=== PATIENT | female | born 1995 | race Caucasian/White ===

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

== ENCOUNTER 2017-07-19 11:38 | Inpatient (IN) | payer MEDICAID ==
[~2017-07-19] VITALS: Ht 167.6 cm; Wt 61.4 kg
[~2017-07-19 11:38] MED LIST changes: +HYDROCODON-ACE1 EAC7 PO; +IBUPROFEN600 MG PO
[2017-07-19 13:36] LABS: MAGNESIUM - SERUM 1.8 mg/dL (1.8-2.4)
[2017-07-19 15:26] LABS: BASOPHILS 0.1 % (0-2); EOSINOPHILS 1.6 % (0-7); HEMATOCRIT 49.2 % (36.0-48.0); HEMOGLOBIN 16.5 g/dL (12-16); IMMATURE GRANULOCYTES 0.2 % (0-5); MCH 29.2 pg (26.0-34.0); MCHC 33.5 g/dL (31.0-37.0); MCV 87.1 fL (80.0-100.0); MEAN PLATELET VOLUME 11.3 fL (7.4-10.4); MONOCYTES 6.7 % (2-11); NEUTROPHILS 86.4 % (40-80); RBC 5.65 10x6/uL (4.00-5.40); RDW 13.7 % (11.5-14.5); WBC 14.6 10x3/uL (4.8-10.8)
[2017-07-19 15:29] LABS: PLATELET COUNT 187 10x3/uL (130-400)
[2017-07-19 15:42] LABS: ALBUMIN 3.8 g/dL (3.4-5.0); ALKALINE PHOSPHATASE 94 U/L (46-116); ALT (SGPT) 13 U/L (10-68); BILIRUBIN - TOTAL 0.77 mg/dL (0.2-1.3); CALC OSMOLALITY 268 mosm/kg (275-300); CALCIUM 8.6 mg/dL (8.5-10.1); CARBON DIOXIDE 17.8 mmol/L (21.0-32.0); CHLORIDE - SERUM 100 mmol/L (98-107); CREATININE - SERUM 0.7 mg/dL (0.6-1.3); GLUCOSE 104 mg/dL (74-106); PROTEIN - SERUM 7.5 g/dL (6.4-8.2); SODIUM 135 mmol/L (136-145); UREA NITROGEN 9 mg/dL (7-18); eGFR NON AFRICAN AMERICAN > 90 mL/min (90-120)
[2017-07-19 16:14] LABS: ERYTHROCYTE SEDIMENTATION RATE 5 mm/hr (0-20)
[2017-07-19 17:10] LABS: APPEARANCE HAZY (CLEAR); BILIRUBIN NEGATIVE (NEGATIVE); COLOR YELLOW (YELLOW); GLUCOSE NEGATIVE (NEGATIVE); HCG URINE NEGATIVE (NEGATIVE); KETONE SMALL mg/dL (NEGATIVE); NITRITE NEGATIVE (NEGATIVE); PROTEIN TRACE mg/dL (NEGATIVE); UROBILINOGEN NORMAL (NORMAL)
[2017-07-19 17:12] LABS: BACTERIA NONE SEEN /hpf (NONE SEEN); EPITHELIAL CELLS 0-5 /hpf (0-5); WHITE CELLS - URINE 0-5 /hpf (0-5)
[2017-07-19 17:21] LABS: UDS - AMPHET NEGATIVE QUAL (NEGATIVE); UDS - BARB NEGATIVE QUAL (NEGATIVE); UDS - BENZO NEGATIVE QUAL (NEGATIVE); UDS - COCAINE NEGATIVE QUAL (NEGATIVE); UDS - OPIATE POSITIVE QUAL (NEGATIVE); UDS - PCP NEGATIVE QUAL (NEGATIVE); UDS - THC NEGATIVE QUAL (NEGATIVE)
[2017-07-19 17:39] LABS: CKMB 0.4 U/L (0.0-3.6); CREATINE KINASE 65 UL (21-215)
[2017-07-19 17:40] LABS: TROPONIN-I < 0.017 ng/mL (0.000-0.060)
--- NOTE | 2017-07-19 19:45 | NUR ---
RECIEVED PT TO FLOOR FROM ED VIA WHEELCHAIR. PT TRANSFERED SELF TO BED. PT IS ALERT AND ORIENTED AND ABLE TO VERBALIZE NEEDS. IV IS PATENT AND SALINE LOC AT THIS TIME. PT DENIES ANY PAIN AT THIS TIME. O2 @ 2 PER NASAL CANNULA. NO NEEDS ARE VERBALIZED AT THIS TIME. WILL CONTINUE TO MONITOR. SPOUSE AT THE BEDSIDE. SIDE RAILS ARE UP X 2. BED IS IN LOWEST POSITION. CALL LIGHT IS WITHIN REACH.
[2017-07-19 20:00] VITALS: BP 101/67
--- NOTE | 2017-07-19 23:03 | NUR ---
ADMIT ASSESSMENT COMPLETED. NIGHT MEDS GIVEN WITH NO PROBLEMS. PRN ROBITUSSIN ADMINISTERED PER ORDER. NO NEEDS ARE VOICED. SPOUSE AT BEDSIDE. SIDE RAILS X 2. BED LOW. CALL LIGHT IN REACH.
[2017-07-19 23:21] VITALS: BP 101/67; Ht 167.6 cm; Wt 61.4 kg
[2017-07-19 23:32] LABS: CKMB 0.5 U/L (0.0-3.6); CREATINE KINASE 72 UL (21-215); TROPONIN-I < 0.017 ng/mL (0.000-0.060)
[2017-07-20] VITALS: BP 115/66
[2017-07-20 04:00] VITALS: BP 111/57
[2017-07-20 04:22] LABS: BASOPHILS 0 % (0-2); EOSINOPHILS 1.2 % (0-7); HEMATOCRIT 45.9 % (36.0-48.0); HEMOGLOBIN 15.8 g/dL (12-16); IMMATURE GRANULOCYTES 0.5 % (0-5); LYMPHOCYTES 2.5 % (15-50); MCH 29.2 pg (26.0-34.0); MCHC 34.4 g/dL (31.0-37.0); MEAN PLATELET VOLUME 10.8 fL (7.4-10.4); MONOCYTES 5.9 % (2-11); NEUTROPHILS 89.9 % (40-80); PLATELET COUNT 207 10x3/uL (130-400); RBC 5.41 10x6/uL (4.00-5.40); RDW 13.7 % (11.5-14.5)
[2017-07-20 04:25] LABS: MCV 84.8 fL (80.0-100.0); WBC 19.7 10x3/uL (4.8-10.8)
[2017-07-20 04:58] LABS: ALBUMIN 2.8 g/dL (3.4-5.0); ALKALINE PHOSPHATASE 67 U/L (46-116); ALT (SGPT) 13 U/L (10-68); CALC OSMOLALITY 273 mosm/kg (275-300); CALCIUM 8.2 mg/dL (8.5-10.1); CARBON DIOXIDE 20.4 mmol/L (21.0-32.0); CHLORIDE - SERUM 105 mmol/L (98-107); CKMB 0.5 U/L (0.0-3.6); CREATINE KINASE 83 UL (21-215); CREATININE - SERUM 0.8 mg/dL (0.6-1.3); GLUCOSE 134 mg/dL (74-106); POTASSIUM - SERUM 3.5 mmol/L (3.5-5.1); PROTEIN - SERUM 6.3 g/dL (6.4-8.2); SODIUM 137 mmol/L (136-145); TROPONIN-I < 0.017 ng/mL (0.000-0.060); UREA NITROGEN 8 mg/dL (7-18); eGFR NON AFRICAN AMERICAN > 90 mL/min (90-120)
--- NOTE | 2017-07-20 07:50 | NUR ---
PT AOX4 RESP EVEN AND LABORED AT 48 AT THIS TIME HR OF 143. IV TO RIGHT AC PATENT AND INTACT AT THIS TIME SRX2 BED AT LOWEST SETTING CALL LIGHT WITHIN REACH WILL CONTINUE TO MONITOR
--- NOTE | 2017-07-20 07:51 | NUR ---
RT ARRIVED TO GIVE PATIENT MORNING BREATHING TREATMENT AND HR IS 142, RR 48, SP02 94% ON 4L NC, NO WHEEZES HEARD, FAINT CRACKLES BILATERALLY, MORE ON LEFT THAN RIGHT. LANDON RN NOTIFIED. BREATHING TREATMENT HELD PER RT PROTOCOL.
[2017-07-20 07:57] VITALS: BP 107/72
--- NOTE | 2017-07-20 08:41 | NUR ---
BOY TELLO FOR PT HR OF 143, AND RESP 48 AT THIS TIME.
--- NOTE | 2017-07-20 09:35 | NUR ---
STAT EKG and ABG obtained. Patient RR still 48, HR 143, patient still complaining of SOB. Respirations are shallow and labored. Patient also states that she is hot and looks flushed. New orders recieved for XOPENEX treatments. Will start Xopenex treatments as ordered. Will cont. to monitor.
[2017-07-20 10:17] LABS: HEMOGLOBIN A1C 5.5 % (4.8-6.0)
--- NOTE | 2017-07-20 11:16 | NUR ---
Patient Name: CAIN ABEBE Admission Status: ER Accout number: [id number] Admission Date: 07-19-2017 : 1995 Admission Diagnosis: Attending: INDIRA DIXON Current LOS: 1 Anticipated DC Date: Planned Disposition: Home Primary Insurance: MEDICAID [place] Discharge Planning Comments: CM met with patient to assess discharge planning needs. Patient lives independently at home with her and aunt, where she plans to return. She does not have a PCP. She denies any DME or HH services and stated that her home is safe to return. CM will continue to follow and assist with discharge planning needs. PCP: mukesh Clarke on [address] () [phone] Chemical Operations Specialist: Gina Bernal
[2017-07-20 12:30] VITALS: BP 119/62
--- NOTE | 2017-07-20 14:46 | NUR ---
PATIENT RR 40, SP02 95% ON 3L NC, AFTERNOON BREATHING TREATMENT ADMINISTERED. PATIENT STILL STATES THAT SHE IS SOB. PATIENT IS BREATHING LABORED AND SHALLOW. BREATH SOUNDS MOSTLY DIMINISHED WITH SCATTERED CRACKLES.
[2017-07-20 15:47] VITALS: BP 102/56
--- NOTE | 2017-07-20 19:30 | NUR ---
RECIEVED SHIFT REPORT. PT IS LYING IN BED. ALERT AND ORIENTED AND ABLE TO VERBALIZE NEEDS. IV IS PATENT AND FLUIDS ARE RUNNING PER ORDER. O2 @ 3 PER NASAL CANNULA. PT IS AMBULATORY BUT WAS INSTRUCTED TO CALL FOR ANY ASSISTANCE NEEDED. PT STATES PAIN IS 3/10. SCD'S ON. NO NEEDS ARE VERBALIZED AT THIS TIME. SPOUSE AT BEDSIDE. SIDE RAILS ARE UP X 2. BED IS IN LOWEST POSITION. CALL LIGHT IS WITHIN REACH.
[2017-07-20 20:00] VITALS: BP 111/61
--- NOTE | 2017-07-20 20:31 | NUR ---
SHIFT ASSESSMENT COMPLETED. NIGHT MEDS GIVEN WITH NO PROBLEMS. NO NEEDS ARE VOICED. WILL MONITOR. SPOUSE AT BEDSIDE. SIDE RAILS X 2. BED LOW. CALL LIGHT IN REACH.
[2017-07-21] VITALS: BP 135/72
[2017-07-21 04:00] VITALS: BP 128/66
[2017-07-21 06:03] LABS: BASOPHILS 0 % (0-2); EOSINOPHILS 3.6 % (0-7); HEMATOCRIT 39.1 % (36.0-48.0); HEMOGLOBIN 13.2 g/dL (12-16); IMMATURE GRANULOCYTES 0.2 % (0-5); LYMPHOCYTES 6.3 % (15-50); MCH 29.3 pg (26.0-34.0); MCHC 33.8 g/dL (31.0-37.0); MCV 86.7 fL (80.0-100.0); MEAN PLATELET VOLUME 11.7 fL (7.4-10.4); MONOCYTES 6.1 % (2-11); NEUTROPHILS 83.8 % (40-80); PLATELET COUNT 182 10x3/uL (130-400); RBC 4.51 10x6/uL (4.00-5.40); RDW 13.9 % (11.5-14.5)
[2017-07-21 06:08] LABS: WBC 12.6 10x3/uL (4.8-10.8)
[2017-07-21 06:36] LABS: ALBUMIN 2.4 g/dL (3.4-5.0); ALKALINE PHOSPHATASE 44 U/L (46-116); ALT (SGPT) 10 U/L (10-68); BILIRUBIN - TOTAL 0.34 mg/dL (0.2-1.3); CALCIUM 8.3 mg/dL (8.5-10.1); CARBON DIOXIDE 22.2 mmol/L (21.0-32.0); CHLORIDE - SERUM 108 mmol/L (98-107); CREATININE - SERUM 0.6 mg/dL (0.6-1.3); GLUCOSE 108 mg/dL (74-106); SODIUM 139 mmol/L (136-145); eGFR NON AFRICAN AMERICAN > 90 mL/min (90-120)
[2017-07-21 06:37] LABS: CALC OSMOLALITY 277 mosm/kg (275-300); POTASSIUM - SERUM 4.3 mmol/L (3.5-5.1); UREA NITROGEN 11 mg/dL (7-18)
[2017-07-21 07:20] LABS: C-REACTIVE PROTEIN 52.3 mg/dL (0.0-0.9)
--- NOTE | 2017-07-21 07:35 | NUR ---
ASSESSMENT COMPLETE. IV TO L WRIST PATNET. NS INFUSING AT 100 CC/HR. SL TO R AC. O2 3L NC IN USE. CARIDAC MONITOR SHOWING ST 113 PER TECH. RESP SHALLOW. NONPRODUCTIVE,DRY COUGH. SCD'S IN USE TO BILAT LEGS. AT BEDSIDE.
[2017-07-21 07:50] VITALS: BP 113/71
--- NOTE | 2017-07-21 12:00 | NUR ---
CONTINUES WITH NONPRODUCTIVE, DRY COUGH. NO CHANGES NOTED AT THIS TIME.
[2017-07-21 12:26] VITALS: BP 118/63
--- NOTE | 2017-07-21 13:58 | NUR ---
NORCO GIVEN FOR COMPLAINT OF CHEST PAIN WITH COUGHING AND SORE THROAT.
--- NOTE | 2017-07-21 15:05 | NUR ---
RESTING QUIETLY WTIH EYES CLOSED. SPECIMEN CUP FOR SPUTUM LEFT ON BEDSIDE TABLE. COLLECTION CONTAINER LEFT IN TOILET TO OBTAIN URINE SPECIMEN WITH NEXT VOID.
[2017-07-21 15:32] VITALS: BP 111/44
--- NOTE | 2017-07-21 17:45 | NUR ---
DR GOMEZ BY TO SEE PATIENT. PATIENT PLACED IN DROPLET ISOLATION.
[2017-07-21 20:00] VITALS: BP 130/85
[2017-07-22 04:00] VITALS: BP 141/79
[2017-07-22 05:14] LABS: BASOPHILS 0.1 % (0-2); EOSINOPHILS 7.3 % (0-7); HEMATOCRIT 36.4 % (36.0-48.0); IMMATURE GRANULOCYTES 0.1 % (0-5); LYMPHOCYTES 10.5 % (15-50); MCH 28.5 pg (26.0-34.0); MCV 86.5 fL (80.0-100.0); MEAN PLATELET VOLUME 11.2 fL (7.4-10.4); MONOCYTES 8.5 % (2-11); NEUTROPHILS 73.5 % (40-80); PLATELET COUNT 193 10x3/uL (130-400); RBC 4.21 10x6/uL (4.00-5.40); RDW 13.7 % (11.5-14.5); WBC 9.8 10x3/uL (4.8-10.8)
[2017-07-22 05:23] LABS: ALBUMIN 2.3 g/dL (3.4-5.0); ALKALINE PHOSPHATASE 42 U/L (46-116); BILIRUBIN - TOTAL 0.48 mg/dL (0.2-1.3); CALC OSMOLALITY 275 mosm/kg (275-300); CALCIUM 8.1 mg/dL (8.5-10.1); CARBON DIOXIDE 22.9 mmol/L (21.0-32.0); CHLORIDE - SERUM 106 mmol/L (98-107); CREATININE - SERUM 0.5 mg/dL (0.6-1.3); GLUCOSE 81 mg/dL (74-106); POTASSIUM - SERUM 4.1 mmol/L (3.5-5.1); PROTEIN - SERUM 6.1 g/dL (6.4-8.2); SODIUM 139 mmol/L (136-145); UREA NITROGEN 11 mg/dL (7-18); eGFR NON AFRICAN AMERICAN > 90 mL/min (90-120)
[2017-07-22 05:24] LABS: ALT (SGPT) 14 U/L (10-68)
[2017-07-22 08:10] VITALS: BP 130/69
--- NOTE | 2017-07-22 08:50 | NUR ---
ASSESSMENT COMPLETE. IV TO L WRIST PATENT. NS INFUSING AT 100 CC/HR VIA PUMP. R AC SL. O2 3.5L NC IN USE. DROPLET ISOLATION. MEDICAL RECORD ASSISTANT SHOWING ST 102 PER TECH. SCD'S IN USE TO BILAT LEGS. RESP SHALLOW.
--- NOTE | 2017-07-22 12:00 | NUR ---
NO CHANGES NOTED AT PRESENT.
[2017-07-22 12:53] VITALS: BP 122/72
[2017-07-22 13:16] LABS: ANA REFLEX - DIRECT Negative (Negative)
--- NOTE | 2017-07-22 14:38 | NUR ---
VANCOMYCIN TROUGH = 3.7 (AT DOSING 1 GRAM Q12H) INCREASED DOSING TO 1.25 GRAM Q8H AND ORDERED A TROUGH FOR TOMORROW.
--- NOTE | 2017-07-22 15:00 | NUR ---
RESTING QUIETLY WITH EYES CLOSED. RESP EVEN,NONLABORED.
[2017-07-22 15:50] VITALS: BP 114/76
--- NOTE | 2017-07-22 18:27 | NUR ---
AT BEDSIDE. DENIES ANY NEEDS AT THIS TIME.
--- NOTE | 2017-07-22 19:30 | NUR ---
RECEIVED CARE FROM DAY NURSE. PT SITTING UP IN BED WITH SPOUSE AT SIDE. REPORTS NO NEEDS. CALL LIGHT AT SIDE. IV INFUSING PER ORDER. PER PT IV IN RIGHT AC LEAKING SO "THEY" STOPPED USING IT. IV WITH DRIED BLOOD AROUND INSERTION SITE AND SLIGHTLY DISLOADGED. DC'D WITH TIP INTACT.
[2017-07-22 20:00] VITALS: BP 125/74
[2017-07-22 21:07] LABS: CYCLIC CITRULL PEPTIDE IGG/IGA 1 units (0-19)
[2017-07-22 22:08] LABS: MYCOPLASMA PNEUMO IGG 518 U/mL (0-99)
[2017-07-23 03:10] LABS: ANGIOTENSIN CONVERTING ENZYME 31 U/L (14-82)
[2017-07-23 04:00] VITALS: BP 122/78
--- NOTE | 2017-07-23 04:52 | NUR ---
ASSESSED, PT REMAINS IN ISOLATION, AT THIS TIME SHE IS ASLEEP WITH EASY RESPIRATIONS BUT WHEN SHE WAKES UP SHE HAS COUGHING SPELLS. ONCE TONIGHT SHE COUGHED SO MUCH SHE HAD TO HAVE HER LINES CHANGED. THE BED IS LOW, RAILS UP X'S 2 WITH THE CALL LIGHT AT HAND.
[2017-07-23 07:03] LABS: BASOPHILS 0.1 % (0-2); EOSINOPHILS 12.9 % (0-7); HEMATOCRIT 34.7 % (36.0-48.0); HEMOGLOBIN 11.6 g/dL (12-16); IMMATURE GRANULOCYTES 0.4 % (0-5); LYMPHOCYTES 16.6 % (15-50); MCH 28.5 pg (26.0-34.0); MCHC 33.4 g/dL (31.0-37.0); MCV 85.3 fL (80.0-100.0); MONOCYTES 9.8 % (2-11); NEUTROPHILS 60.2 % (40-80); PLATELET COUNT 198 10x3/uL (130-400); RBC 4.07 10x6/uL (4.00-5.40); RDW 13.5 % (11.5-14.5)
[2017-07-23 07:04] LABS: WBC 7.3 10x3/uL (4.8-10.8)
[2017-07-23 07:23] LABS: ALBUMIN 2.3 g/dL (3.4-5.0); ALKALINE PHOSPHATASE 40 U/L (46-116); BILIRUBIN - TOTAL 0.33 mg/dL (0.2-1.3); CALCIUM 8.2 mg/dL (8.5-10.1); CARBON DIOXIDE 25.8 mmol/L (21.0-32.0); CHLORIDE - SERUM 106 mmol/L (98-107); CREATININE - SERUM 0.5 mg/dL (0.6-1.3); GLUCOSE 96 mg/dL (74-106); POTASSIUM - SERUM 3.6 mmol/L (3.5-5.1); SODIUM 140 mmol/L (136-145); eGFR NON AFRICAN AMERICAN > 90 mL/min (90-120)
[2017-07-23 07:25] LABS: ALT (SGPT) 21 U/L (10-68); CALC OSMOLALITY 276 mosm/kg (275-300); UREA NITROGEN 6 mg/dL (7-18)
[2017-07-23 08:45] VITALS: BP 116/76
[2017-07-23 16:45] VITALS: BP 117/74
--- NOTE | 2017-07-23 18:56 | NUR ---
IV IN L WRIST REMOVED. 20 GA IN R WRIST PLACED.
[2017-07-23 20:00] VITALS: BP 122/80
--- NOTE | 2017-07-23 20:20 | NUR ---
PATIENT RESTING IN BED AND DENIES NEEDS AT THIS TIME. BED IN LOWEST POSITION AND CALL LIGHT WITHIN REACH. ENCOURAGED THE PATIENT TO CALL IF SHE HAS NEEDS.
[2017-07-24] VITALS: BP 119/76
[2017-07-24 04:00] VITALS: BP 144/70
[2017-07-24 05:24] LABS: BASOPHILS 0.1 % (0-2); EOSINOPHILS 16.6 % (0-7); HEMATOCRIT 34.5 % (36.0-48.0); HEMOGLOBIN 11.6 g/dL (12-16); IMMATURE GRANULOCYTES 1.5 % (0-5); LYMPHOCYTES 21.8 % (15-50); MCH 28.6 pg (26.0-34.0); MCHC 33.6 g/dL (31.0-37.0); MEAN PLATELET VOLUME 10.2 fL (7.4-10.4); MONOCYTES 9.3 % (2-11); NEUTROPHILS 50.7 % (40-80); PLATELET COUNT 218 10x3/uL (130-400); RBC 4.06 10x6/uL (4.00-5.40); RDW 13.5 % (11.5-14.5); WBC 7.1 10x3/uL (4.8-10.8)
[2017-07-24 05:42] LABS: ALBUMIN 2.3 g/dL (3.4-5.0); ALKALINE PHOSPHATASE 40 U/L (46-116); ALT (SGPT) 26 U/L (10-68); CALC OSMOLALITY 278 mosm/kg (275-300); CALCIUM 8.2 mg/dL (8.5-10.1); CARBON DIOXIDE 24.7 mmol/L (21.0-32.0); CHLORIDE - SERUM 106 mmol/L (98-107); CREATININE - SERUM 0.5 mg/dL (0.6-1.3); GLUCOSE 104 mg/dL (74-106); POTASSIUM - SERUM 3.2 mmol/L (3.5-5.1); PROTEIN - SERUM 5.9 g/dL (6.4-8.2); SODIUM 141 mmol/L (136-145); UREA NITROGEN 6 mg/dL (7-18); eGFR NON AFRICAN AMERICAN > 90 mL/min (90-120)
[2017-07-24 09:11] VITALS: BP 121/87
[2017-07-24 11:59] VITALS: BP 113/75
[2017-07-24 16:19] VITALS: BP 121/87
[2017-07-24 20:00] VITALS: BP 112/86
[2017-07-24 20:06] LABS: B PARAPERTUSSIS DNA Negative (Negative); B PERTUSSIS DNA Negative (Negative)
--- NOTE | 2017-07-24 20:30 | NUR ---
PATIENT RESTING IN BED WITH GUEST AT BEDSIDE AND DENIES NEEDS AT THIS TIME. BED IN LOWEST POSITION AND CALL LIGHT WITHIN REACH. ADMINISTERED MEDS PER ORDERS. COMPLETED ASSESSMENT. ENCOURAGED THE PATIENT TO CALL IF SHE HAS NEEDS.
[2017-07-25 04:00] VITALS: BP 111/72
[2017-07-25 06:49] LABS: BASOPHILS 0.2 % (0-2); EOSINOPHILS 20.9 % (0-7); HEMATOCRIT 34.2 % (36.0-48.0); HEMOGLOBIN 11.6 g/dL (12-16); IMMATURE GRANULOCYTES 3.4 % (0-5); MCH 28.4 pg (26.0-34.0); MCHC 33.9 g/dL (31.0-37.0); MCV 83.8 fL (80.0-100.0); MEAN PLATELET VOLUME 10.2 fL (7.4-10.4); MONOCYTES 8.4 % (2-11); NEUTROPHILS 46.1 % (40-80); PLATELET COUNT 242 10x3/uL (130-400); RBC 4.08 10x6/uL (4.00-5.40); RDW 13.3 % (11.5-14.5)
[2017-07-25 06:51] LABS: WBC 8.9 10x3/uL (4.8-10.8)
[2017-07-25 07:09] LABS: ALBUMIN 2.4 g/dL (3.4-5.0); ALKALINE PHOSPHATASE 43 U/L (46-116); ALT (SGPT) 32 U/L (10-68); BILIRUBIN - TOTAL 0.24 mg/dL (0.2-1.3); CALC OSMOLALITY 278 mosm/kg (275-300); CALCIUM 8.3 mg/dL (8.5-10.1); CHLORIDE - SERUM 106 mmol/L (98-107); CREATININE - SERUM 0.5 mg/dL (0.6-1.3); GLUCOSE 92 mg/dL (74-106); POTASSIUM - SERUM 3.5 mmol/L (3.5-5.1); SODIUM 141 mmol/L (136-145); UREA NITROGEN 7 mg/dL (7-18); eGFR NON AFRICAN AMERICAN > 90 mL/min (90-120)
--- NOTE | 2017-07-25 08:20 | NUR ---
PATIENT IN BED WITH NO COMPLAINTS AT THIS TIME. IV INTACT. CALL LIGHT WITHIN REACH.
[2017-07-25 09:57] VITALS: BP 119/83
--- NOTE | 2017-07-25 11:00 | NUR ---
PATIENT DISCONECTED FROM IV AND TELEMETRY SO THAT SHE COULD SHOWER, AND WAS RECONNECTED UPON RETURN.
--- NOTE | 2017-07-25 12:56 | NUR ---
NUTRITION F/U CHART REVIEWED. PT REMAINS IN ISOLATION. NURSING REPORTS PT NOT EATING PROVIDED MEALS. IS EATING FOOD FROM OUTSIDE FACILITIES. REMAINS AT LOW NUTRITIONAL RISK. WILL CHANGE DIET TO REGULAR. RD FOLLOWING
[2017-07-25 12:57] VITALS: BP 105/69
[2017-07-25 13:13] LABS: ANCA - ANTIMYELOPEROXIDASE <9.0 U/mL (0.0-9.0); ANCA - ANTIPROTEINASE 3 <3.5 U/mL (0.0-3.5); ANCA - ATYPICAL <1:20 titer (Neg:<1:20); ANCA - CYTOPLASMIC <1:20 titer (Neg:<1:20); ANCA - PERINUCLEAR <1:20 titer (Neg:<1:20)
[2017-07-25 16:31] VITALS: BP 110/64
[2017-07-25 17:11] LABS: LEGIONELLA ANTIGEN - URINE Negative (Negative)
[2017-07-25 20:00] VITALS: BP 123/74
[2017-07-26] VITALS: BP 91/51
[2017-07-26 04:00] VITALS: BP 110/60
--- NOTE | 2017-07-26 08:00 | NUR ---
AWAKE AND ALERT. ORIENTED X3. LUNGS ARE CLEAR BUT DIMINISHED THROUGHOUT LUNG MELENDREZ. NO COUGH NOTED. SKIN IS INTACT WITHOUT REDNESS. IV TO RIGHT HAND PATENT WITHOUT REDNESS AT INSERTION SITE. BREAKFAST SERVED IN ROOM. DENIES NEEDS.
[2017-07-26 08:45] VITALS: BP 100/66
[2017-07-26 09:53] LABS: BASOPHILS 0.4 % (0-2); EOSINOPHILS 21.6 % (0-7); HEMATOCRIT 35.6 % (36.0-48.0); HEMOGLOBIN 12.1 g/dL (12-16); IMMATURE GRANULOCYTES 4.8 % (0-5); LYMPHOCYTES 12.5 % (15-50); MCH 28.7 pg (26.0-34.0); MCV 84.4 fL (80.0-100.0); MEAN PLATELET VOLUME 10.3 fL (7.4-10.4); MONOCYTES 5.8 % (2-11); NEUTROPHILS 54.9 % (40-80); PLATELET COUNT 289 10x3/uL (130-400); RBC 4.22 10x6/uL (4.00-5.40); RDW 13.5 % (11.5-14.5); WBC 10.8 10x3/uL (4.8-10.8)
--- NOTE | 2017-07-26 10:00 | NUR ---
UP TO BR PER SELF. DENIES NEEDS.
[2017-07-26 10:07] LABS: ALBUMIN 2.8 g/dL (3.4-5.0); ALKALINE PHOSPHATASE 51 U/L (46-116); ALT (SGPT) 34 U/L (10-68); CALC OSMOLALITY 277 mosm/kg (275-300); CALCIUM 8.4 mg/dL (8.5-10.1); CARBON DIOXIDE 24.7 mmol/L (21.0-32.0); CHLORIDE - SERUM 106 mmol/L (98-107); CREATININE - SERUM 0.5 mg/dL (0.6-1.3); GLUCOSE 119 mg/dL (74-106); POTASSIUM - SERUM 3.7 mmol/L (3.5-5.1); PROTEIN - SERUM 5.9 g/dL (6.4-8.2); SODIUM 140 mmol/L (136-145); UREA NITROGEN 7 mg/dL (7-18); eGFR NON AFRICAN AMERICAN > 90 mL/min (90-120)
--- NOTE | 2017-07-26 12:15 | CN ---
PATIENT NAME:CAIN ABEBE MEDICAL RECORD: [id number] : [birth year] LOCATION:D[id number] ADMIT DATE: 07/19/17 ACCOUNT: [id number] CONSULTING PHYSICIAN: FERDINAND GODDARD MD REFERRING PHYSICIAN: INDIRA DIXON MD DATE OF CONSULTATION: 07/20/2017 CARDIOLOGY CONSULT DIAGNOSES: 1. Pneumonia. 2. Tachycardia. 3. Shortness of breath and dyspnea on exertion. HISTORY: Mrs. Abebe presents with increasing shortness of breath and dyspnea on exertion, found to have right lower lobe pneumonia. We are asked to see her due to tachycardia. She has sinus tachycardia to 130-140 range. Echocardiogram is absolutely normal. PHYSICAL EXAMINATION: GENERAL APPEARANCE: Well-nourished, well-developed, appears stated age. Level of distress, comfortable. PSYCHIATRIC: Mental status, alert, normal affect. Orientation, oriented to time, place and person. EYES: Lids and conjunctiva, noninjected. No discharge, no pallor. ENT: Lips, teeth, gums, normal dentition. Oropharynx, no cyanosis, no pallor. NECK: Carotid arteries, bilateral normal upstroke, no bruits, no thrills. JUGULAR VEINS: No jugular venous pressure or distention. CERVICAL LYMPH NODES: Nontender, nonenlarged. THYROID: Not enlarged. Nontender. No nodules. LUNGS: Respiratory effort, unlabored. CHEST: Normal curvature. No thoracic deformity. No chest wall tenderness. Percussion, resonant. Auscultation, clear. No wheezes, no rales, no rhonchi. CARDIOVASCULAR: Precordial exam, nondisplaced. No heaves or pericardial thrills. Rate and rhythm, regular. Heart sounds, normal S1, normal S2. No S3, no gallop, no rub. Systolic murmur, not heard. Diastolic murmur, not heard. EXTREMITIES: No cyanosis, no edema. Peripheral pulses, full and equal in all extremities, except as noted. No bruits appreciated. ABDOMEN: Soft, nondistended. Normal aorta. No bruit. Nontender. No masses. Liver, nontender, no hepatomegaly. Spleen, nontender, no splenomegaly. MUSCULOSKELETAL: No joint tenderness. No joint swelling. No erythema. NEUROLOGICAL: Normal gait, normal strength, normal tone. SKIN: Warm and dry. Sinus tachycardia is in response to the pneumonia. It is a physiologic response. No treatment for the tachycardia is needed. No other cardiac workup or treatment is needed. TRANSINT:[id number] Voice Confirmation ID: [id number] DOCUMENT ID: [id number] CONSULT REPORT [id number] CAIN ABEBE JEFFREY MD at 1215 CC: [id number] DICTATION DATE: 07/20/17 1154 SILK SCREEN PRINTING RACKER: 07/20/17 1232 ADM IN [facility] [id number] [place] [address]
--- NOTE | 2017-07-26 12:15 | EC ---
PATIENT:CAIN ABEBE DATE OF SERVICE: 07/19/17 SEX: F MEDICAL RECORD: [id number] DATE OF : [birth year] LOCATION:D.[facility] [place] AGE OF PATIENT: 22 ADMISSION DATE: 07/19/17 REFERRING PHYSICIAN: INTERPRETING PHYSICIAN: FERDINAND HERRERA MD ECHOCARDIOGRAM REPORT ECHO CHARGES 4 ECHO COMPLETE CLINICAL DIAGNOSIS: FEVER/SOB ECHOCARDIOGRAPHIC MEASUREMENTS (adult normal given) AC root (d.<3.7cm) 2.4 cm LV Septum d (<1.2 cm> 1.0 cm Valve Excursion 1.8 cm LV Septum (systole) 1.3 cm Left Atria (s.<4.0cm> 2.3 cm LVPW d(<1.2cm) 1.0 cm RV (d.<2.3cm) 1.9 cm LVPW (sytole) 1.4 cm LV diastole(<5.6CM) 4.0 cm MV E-F(>70mm/sec) cm LV systole 2.2 cm LVOT Diameter 1.7 cm MV exc.(>10mm) cm Est.ejection fraction (50-75%) % Pericardial Effusion N DOPPLER: LVIT cm/sec A 85.0 cm/sec E 94.0 cm/sec LA cm/sec RVSP 38.0 mmHg LVOT 106 cm/sec AOP1/2T m/s Asc. Ao 125 cm/sec RVOT 92.0 cm/sec RA cm/sec PA 114 cm/sec AV Gradient Peak 6.3 mmHg AV Mean 3.0 mmHg AV Area 2.2 cm MV Gradient Peak 2.5 mmHg MV Mean 1.2 mmHg MV Area cm COMMENTS: Inspector And Unloader: Rajani GIRARDOE Spring Winder: 1 Dr. Herrera TAPE# PACS DATE OF SERVICE: 07/20/2017 FINDINGS: 1. Left ventricular chamber size is within normal limits. Left ventricular systolic function is normal. Overall ejection fraction estimated at 55%-60%. 2. Left atrium, right atrium, and right ventricle chamber sizes are within normal limits. 3. Valvular structures have normal structure and motion. 4. Doppler interrogation reveals no significant valvular insufficiency or stenosis. Pulmonary systolic pressure is normal, estimated at 38 mmHg. ECHOCARDIOGRAM REPORT [id number] CAIN ABEBE 5. No evidence of pericardial effusion or left ventricular thrombus. TRANSINT:[id number] Voice Confirmation ID: [id number] DOCUMENT ID: [id number] FERDINAND HERRERA MD at 1215 CC: [id number] DICTATION DATE: 07/20/171107 SAUSAGE COOKER: 07/20/17 1247 ADM IN [facility] [address] [place] [address]
[2017-07-26 12:41] VITALS: BP 113/77
--- NOTE | 2017-07-26 12:42 | NUR ---
LUNCH SERVED IN ROOM. DENIES NEEDS.
[2017-07-26] MEDS ORDERED: AFRIN NASAL SPR15 ML NASAL (12:55)
[2017-07-26] MEDS ORDERED: BENZONATATE200 MG PO (12:55)
[2017-07-26] MEDS ORDERED: MUCINEX DM ER1 EAC1 PO (12:55)
--- NOTE | 2017-07-26 16:12 | NUR ---
DISCHARGED TO HOME WITH FAMILY AMBULATORY. DISCHARGE INSTRUCTIONS GIVEN BOTH VERBALLY AND WRITTEN. ALL QUESTIONS ANSWERED. PATIENT VERBALIZED UNDERSTANDING OF SAME. NEEDED PRESCRIPTIONS ESCRIBED TO PHARMACY OF CHOICE. ALL BELONGINGS WITH PATIENT.
== END 2017-07-26 16:15 | disposition home or self-care (01) | DRG 193 ==
LOC: D.ER 11:38 → D.MS 17:45
PROVIDERS: Emergency Medicine; Family Medicine; Internal Medicine Pulmonary Disease; Physician Assistant; Student in an Organized Health Care Education/Training Program; ADMIT Family Medicine
DX: J18.9 Pneumonia, unspecified organism (principal); J96.01 Acute respiratory failure with hypoxia; J81.1 Chronic pulmonary edema; E87.2 Acidosis; F17.203 Nicotine dependence unspecified, with withdrawal; R00.0 Tachycardia, unspecified; D72.829 Elevated white blood cell count, unspecified; F11.90 Opioid use, unspecified, uncomplicated; R79.89 Other specified abnormal findings of blood chemistry